=== PATIENT | male | born 1975 | race African-American/Black ===

== ENCOUNTER 2020-05-13 17:44 | Emergency (ER) | payer SELFPAY ==
[2020-05-13 18:09] VITALS: TEMP 98.5; BMI 34.0
[2020-05-13] MEDS ORDERED: amLODIPine BESYLATE 10 MG TABLET (FP) PO ONE ×2 (18:20)
[2020-05-13] MEDS ORDERED: amLODIPine BESYLATE 5 MG TABLET (FP) ONE (18:22)
--- NOTE | 2020-05-13 19:42 | PDOC ---
History of Present Illness - General Chief Complaint: Foreign Body (FB) Stated Complaint: PENIS COMPLAINT Time Seen by Provider: 05/13/20 18:00 - History of Present Illness Initial Comments: 05/13/20 19:40 44-year-old male with a past medical history of hypertension noncompliant with his medication presents for right sided testicular pain x2 days no dysuria or discharge no systemic symptoms Past History - Medical History Allergies/Adverse Reactions: Allergies Allergy/AdvReac Type Severity Reaction Status Date / Time No Known Allergies Allergy Unverified 05/13/20 18:02 COPD: No HTN: Yes - Psycho-Social/Smoking History Smoking History: Current every day smoker Have you smoked in the past 12 months: Yes Number of Cigarettes Smoked Daily: 3 Information on smoking cessation initiated: No - Substance Abuse Hx (Audit-C & DAST Scrn) How often the patient has a drink containing alcohol: Monthly or less Number of drinks the patient has on a typical day: 1 or 2 How often the patient has six or more drinks on one occasion: Never Score: In Men: 4 or > Positive; In Women: 3 or > Positive: 1 Screen Result (Pos requires Nsg. Audit-10AR): Negative In the last yr the pt used illegal drug/Rx for NonMed reason: No Score: Yes response is considered Positive: 0 Screen Result (Positive result requires Nsg. DAST-10): Negative Review of Systems - Review of Systems Constitutional: No: Fever : Yes: Pain, Testicular Mass. No: Burning, Dysuria, Discharge, Frequency, Flank Pain, Hematuria, Incontinence, Urgency *Physical Exam - Vital Signs Last Vital Signs Temp Pulse Resp BP Pulse Ox 98.5 F 18 L 17 175/106 H 100 05/13/20 17:59 05/13/20 17:59 05/13/20 17:59 05/13/20 17:59 05/13/20 17:59 - Physical Exam 05/13/20 19:40 There is a tender firm nodule at the right epididymis vas deferens area normal surrounding skin color and temperature of the scrotum external genitalia otherwise normal ED Treatment Course - RADIOLOGY Radiology Studies Ordered: Category Date Time Status SCROTUM AND CONTENTS US [US] Stat Ultrasound 05/13/20 18:21 Completed - Medications Given in the ED: ED Medications Discontinued Medications Generic Name Dose Route Start Last Admin Trade Name Freq PRN Reason Stop Dose Admin Amlodipine Besylate 10 mg 05/13/20 18:20 05/13/20 18:26 Norvasc - PO 05/13/20 18:21 10 mg ONCE ONE Administration Medical Decision Making - Medical Decision Making 05/13/20 19:41 Ultrasound results discussed with patient. Patient to follow-up with urology. Tylenol Motrin as directed for pain. Return to the emergency room for further issues. I have reviewed the pathophysiology with the patient. They are in agreement with the treatment plan all questions were answered to their satisfaction. Understanding for follow-up without fail was also conveyed to the patient. Again they are in agreement. Discharge - Discharge Information Problems reviewed: Yes Clinical Impression/Diagnosis: Testicular pain Condition: Stable Disposition: HOME - Admission No - Follow up/Referral Referrals: Speedy Sarah MD [Staff Physician] - - Patient Discharge Instructions Additional Instructions: Tylenol Motrin as directed for pain and return to the emergency room should you have further issues. Without fail follow-up with urology in 1 to 2 days for further evaluation and treatment options. - Post Discharge Activity
[2020-05-13 20:11] VITALS: BP 162/96; PULSE 89
== END 2020-05-13 20:20 | disposition home or self-care (01) ==
LOC: JERFT 17:44
CPT/HCPCS: 76870-TC; 99284-25

== ENCOUNTER 2020-07-01 15:28 | Inpatient (IN) | payer OTHER ==
[2020-07-01] MEDS ORDERED: ASPIRIN 81 MG CHEWABLE TABLETS PO ONE (15:52)
[2020-07-01] MEDS ORDERED: ASPIRIN 81 MG CHEWABLE TABLETS ONE ×2 (16:12→16:14)
[2020-07-01] MEDS ORDERED: ATORVASTATIN CA 80 MG TABLET (FP) PO ONE (16:29)
[2020-07-01 16:39] LABS: BASO % 1.3 % (0-2.0); EOS % 2.1 % (0-4.5); HEMATOCRIT 35.2 % (35.4-49); MCHC 33.9 g/dl (32.0-35.9); MEAN CELL VOLUME 82.7 fl (80-96); MEAN PLT VOLUME 7.4 fl (7.5-11.1); MONO % 8.2 % (3.8-10.2); NEUT % 49.4 % (42.8-82.8); PLATELET COUNT 262 K/MM3 (134-434); RBC 4.26 M/mm3 (4.00-5.60); RDW 13.8 % (11.9-15.9); WHITE BLOOD COUNT 5.7 K/mm3 (4.0-10.0)
[2020-07-01 16:52] LABS: INR 0.98 (0.83-1.09); PROTHROMBIN TIME (PATIENT) 11.9 SEC (9.7-13.0)
[2020-07-01 16:55] LABS: ACTIVATED PTT 31.5 SECONDS (25.2-36.5); CHLORIDE 109 mmol/L (98-107); POTASSIUM 3.5 mmol/L (3.5-5.1); SODIUM 148 mmol/L (136-145)
[2020-07-01 16:57] LABS: CALCIUM 8.8 mg/dL (8.5-10.1)
[2020-07-01 16:58] LABS: ALBUMIN 3.7 g/dl (3.4-5.0); ANION GAP 7 MMOL/L (8-16); BLOOD UREA NITROGEN 16.9 mg/dL (7-18); CO2 32 mmol/L (21-32); GLUCOSE,RANDOM 100 mg/dL (74-106)
[2020-07-01] MEDS ORDERED: ATORVASTATIN CA 80 MG TABLET (FP) ONE (16:59)
[2020-07-01 17:01] LABS: CHOLESTEROL 217 mg/dL (50-200); CREATININE 1.7 mg/dL (0.55-1.3); SGOT/AST 34 U/L (15-37); SGPT/ALT 38 U/L (13-61); TRIGLYCERIDES 177 mg/dL (0-150)
[2020-07-01 17:02] LABS: BILIRUBIN,TOTAL 0.5 mg/dL (0.2-1); LDL CHOLESTEROL (ONLY SJRH) 139 mg/dL (5-100); TOT PROT 8.1 g/dl (6.4-8.2)
[2020-07-01 17:03] LABS: ALK PHOS 58 U/L (45-117); HDL CHOLESTEROL 51 mg/dL (40-60)
[2020-07-01] MEDS ORDERED: SODIUM CHLORIDE 1,000 ML IV SCH (23:15)
[2020-07-01 23:28] VITALS: BMI 31.7
[2020-07-01 23:53] LABS: URINE APPEARANCE CLEAR; URINE BILIRUBIN NEGATIVE (NEGATIVE); URINE COLOR YELLOW; URINE GLUCOSE (UA) NEGATIVE (NEGATIVE); URINE KETONE NEGATIVE (NEGATIVE); URINE LEUK ESTERASE NEGATIVE (NEGATIVE); URINE NITRITE NEGATIVE (NEGATIVE); URINE PROTEIN NEGATIVE (NEGATIVE)
[2020-07-02 00:03] LABS: COCAINE, UR NEGATIVE ng/ml (CUTOFF=300); URINE BARBITURATES NEGATIVE ng/ml (CUTOFF=200)
[2020-07-02 00:04] LABS: OPIATES, URI NEGATIVE ng/ml (CUTOFF=300); PHENCYCLIDINE,URINE NEGATIVE ng/ml (CUTOFF=25)
[2020-07-02 00:36] LABS: METHADONE, UR NEGATIVE ng/ml (CUTOFF=300); URINE AMPHETAMINES NEGATIVE ng/ml (CUTOFF=500); URINE BENZODIAZEPINES NEGATIVE ng/ml (CUTOFF=200)
[2020-07-02] MEDS ORDERED: MORPHINE SULFATE 2 MG/ML VIAL IVPUSH ONE (02:13)
[2020-07-02] MEDS ORDERED: NITROGLYCERIN SUBLINGUAL 1/150 0.4 MG TAB SL ONE (02:33)
[2020-07-02] MEDS ORDERED: ACETAMINOPHEN 325 MG TABLET (FP) PO ONE ×2 (02:34→02:35)
[2020-07-02 07:00] LABS: BASO % 0.9 % (0-2.0); EOS % 2.2 % (0-4.5); HEMATOCRIT 33.5 % (35.4-49); HEMOGLOBIN 11.3 GM/dL (11.7-16.9); LYMPH % 46.6 % (8-40); MCH 27.4 pg (25.7-33.7); MCHC 33.6 g/dl (32.0-35.9); MEAN CELL VOLUME 81.5 fl (80-96); MEAN PLT VOLUME 7.6 fl (7.5-11.1); MONO % 7.3 % (3.8-10.2); PLATELET COUNT 261 K/MM3 (134-434); RBC 4.12 M/mm3 (4.00-5.60); RDW 13.7 % (11.9-15.9); WHITE BLOOD COUNT 6.1 K/mm3 (4.0-10.0)
[2020-07-02 07:04] LABS: INR 1.09 (0.83-1.09); PROTHROMBIN TIME (PATIENT) 13.2 SEC (9.7-13.0)
[2020-07-02 07:05] LABS: ACTIVATED PTT 31.2 SECONDS (25.2-36.5)
[2020-07-02 07:46] LABS: ALBUMIN 3.6 g/dl (3.4-5.0); CALCIUM 8.6 mg/dL (8.5-10.1)
[2020-07-02 07:47] LABS: BLOOD UREA NITROGEN 16.6 mg/dL (7-18); MAGNESIUM 2.2 mg/dL (1.8-2.4)
[2020-07-02 07:49] LABS: CREATININE 1.6 mg/dL (0.55-1.3); PHOSPHOROUS 3.3 mg/dL (2.5-4.9)
[2020-07-02 07:51] LABS: TOT PROT 7.5 g/dl (6.4-8.2)
[2020-07-02] MEDS: ASPIRIN 81 MG CHEWABLE TABLETS PO SCH (10:14)
[2020-07-02] MEDS ORDERED: POTASSIUM CHLORIDE TABS 20 MEQ TABLET.ER (FP) PO ONE ×2 (12:11→14:09)
[2020-07-02] MEDS ORDERED: POTASSIUM CHLORIDE ORAL LIQUID 20 MEQ/15 ML PO ONE (12:12)
[2020-07-02] MEDS: KCL 10 MEQ IVPB 10 MEQ/100 ML INFUS.BAG IVPB SCH ×2 (12:47→14:14)
[2020-07-02] MEDS: amLODIPine BESYLATE 10 MG TABLET (FP) PO SCH (12:48)
[2020-07-02] MEDS: LABETALOL HCL 100 MG TABLET (FP) PO SCH ×2 (19:01→22:22)
[2020-07-02] MEDS: ATORVASTATIN CA 80 MG TABLET (FP) PO SCH (22:21)
[2020-07-02] MEDS: HEPARIN NA (PORCINE) 5,000 UNITS/ML 1ML VIAL SQ SCH (22:21)
[2020-07-03] MEDS: HEPARIN NA (PORCINE) 5,000 UNITS/ML 1ML VIAL SQ SCH ×3 (05:24→21:09)
[2020-07-03 09:02] LABS: HEMATOCRIT 34.7 % (35.4-49); HEMOGLOBIN 11.5 GM/dL (11.7-16.9); MCHC 33.1 g/dl (32.0-35.9); MEAN CELL VOLUME 81.6 fl (80-96); MEAN PLT VOLUME 7.2 fl (7.5-11.1); PLATELET COUNT 265 K/MM3 (134-434); RBC 4.25 M/mm3 (4.00-5.60); RDW 13.9 % (11.9-15.9); WHITE BLOOD COUNT 6.2 K/mm3 (4.0-10.0)
[2020-07-03] MEDS: ASPIRIN 81 MG CHEWABLE TABLETS PO SCH (09:02)
[2020-07-03] MEDS: amLODIPine BESYLATE 10 MG TABLET (FP) PO SCH (09:02)
[2020-07-03] MEDS: LABETALOL HCL 100 MG TABLET (FP) PO SCH ×2 (09:02→14:12)
[2020-07-03 09:31] LABS: POTASSIUM 3.2 mmol/L (3.5-5.1)
[2020-07-03 09:36] LABS: BLOOD UREA NITROGEN 19.4 mg/dL (7-18); CALCIUM 8.9 mg/dL (8.5-10.1)
[2020-07-03 09:40] LABS: CREATININE 1.7 mg/dL (0.55-1.3)
[2020-07-03] MEDS ORDERED: POTASSIUM CHLORIDE ORAL LIQUID 20 MEQ/15 ML PO ONE (12:00)
[2020-07-03] MEDS ORDERED: ASPIRIN 81 MG CHEWABLE TABLETS PO STA (16:37)
[2020-07-03] MEDS: ATORVASTATIN CA 80 MG TABLET (FP) PO SCH (21:08)
[2020-07-04] MEDS: HEPARIN NA (PORCINE) 5,000 UNITS/ML 1ML VIAL SQ SCH ×3 (05:31→21:02)
[2020-07-04 06:39] LABS: HEMATOCRIT 34.4 % (35.4-49); HEMOGLOBIN 11.1 GM/dL (11.7-16.9); MCHC 32.3 g/dl (32.0-35.9); MEAN CELL VOLUME 83.6 fl (80-96); MEAN PLT VOLUME 7.3 fl (7.5-11.1); PLATELET COUNT 250 K/MM3 (134-434); RBC 4.11 M/mm3 (4.00-5.60); RDW 14.3 % (11.9-15.9); WHITE BLOOD COUNT 6.2 K/mm3 (4.0-10.0)
[2020-07-04 06:59] LABS: POTASSIUM 3.3 mmol/L (3.5-5.1)
[2020-07-04 07:02] LABS: BLOOD UREA NITROGEN 17.4 mg/dL (7-18); CALCIUM 9.1 mg/dL (8.5-10.1)
[2020-07-04 07:03] LABS: MAGNESIUM 2.3 mg/dL (1.8-2.4)
[2020-07-04 07:07] LABS: CREATININE 1.7 mg/dL (0.55-1.3)
[2020-07-04] MEDS ORDERED: POTASSIUM CHLORIDE ORAL LIQUID 20 MEQ/15 ML PO ONE (08:30)
[2020-07-04] MEDS: ASPIRIN 325 MG ENTERIC COATED TABLET (FP) PO SCH (09:06)
[2020-07-04 12:23] LABS: URINE APPEARANCE CLEAR; URINE BILIRUBIN NEGATIVE (NEGATIVE); URINE COLOR YELLOW; URINE GLUCOSE (UA) NEGATIVE (NEGATIVE); URINE KETONE TRACE (NEGATIVE); URINE LEUK ESTERASE NEGATIVE (NEGATIVE); URINE NITRITE NEGATIVE (NEGATIVE); URINE PROTEIN NEGATIVE (NEGATIVE)
[2020-07-04] MEDS ORDERED: ACETAMINOPHEN 325 MG TABLET (FP) PO ONE (20:18)
[2020-07-04] MEDS: ATORVASTATIN CA 80 MG TABLET (FP) PO SCH (21:02)
[2020-07-05] MEDS: LABETALOL HCL 100 MG TABLET (FP) PO SCH ×2 (05:44→13:29)
[2020-07-05] MEDS: HEPARIN NA (PORCINE) 5,000 UNITS/ML 1ML VIAL SQ SCH ×2 (05:44→13:29)
[2020-07-05 07:32] LABS: HEMATOCRIT 34.4 % (35.4-49); HEMOGLOBIN 11.2 GM/dL (11.7-16.9); MCH 27.1 pg (25.7-33.7); MCHC 32.5 g/dl (32.0-35.9); MEAN CELL VOLUME 83.3 fl (80-96); MEAN PLT VOLUME 8.2 fl (7.5-11.1); PLATELET COUNT 281 K/MM3 (134-434); RBC 4.13 M/mm3 (4.00-5.60); RDW 14.5 % (11.9-15.9); WHITE BLOOD COUNT 6.1 K/mm3 (4.0-10.0)
[2020-07-05 07:47] LABS: POTASSIUM 3.9 mmol/L (3.5-5.1)
[2020-07-05 07:58] LABS: CALCIUM 9.1 mg/dL (8.5-10.1)
[2020-07-05 07:59] LABS: BLOOD UREA NITROGEN 21.9 mg/dL (7-18)
[2020-07-05 08:02] LABS: CREATININE 1.6 mg/dL (0.55-1.3)
[2020-07-05] MEDS: amLODIPine BESYLATE 10 MG TABLET (FP) PO SCH (11:08)
[2020-07-05] MEDS: ASPIRIN 325 MG ENTERIC COATED TABLET (FP) PO SCH (11:08)
[2020-07-05 14:18] VITALS: BP 156/89; PULSE 73; TEMP 97.6
[2020-07-08 11:07] LABS: DRVVT - 46.4 sec (0.0-47.0); PROTEIN S FREE 147 % (57-157)
[2020-07-08 15:09] LABS: DRVVT - 36.8 sec (0.0-47.0)
[2020-07-09 10:07] LABS: RENIN ACTIVITY(PRA) 3.282 ng/mL/hr (0.167-5.380)
== END 2020-07-05 18:34 | disposition home health service (06) | DRG 65 ==
LOC: JER 15:28 → JERBED 18:06 → J4S 21:26
PROVIDERS: ADMIT Hospitalist; ATTEND Internal Medicine
DX: I63.89 Other cerebral infarction (principal); I16.1 Hypertensive emergency; G81.91 Hemiplegia, unspecified affecting right dominant side; N18.9 Chronic kidney disease, unspecified; I10 Essential (primary) hypertension; E87.6 Hypokalemia; R47.81 Slurred speech; R29.810 Facial weakness; I69.392 Facial weakness following cerebral infarction; R29.703 NIHSS score 3
CPT/HCPCS: 36415; 70450-TC; 70551-TC; 71045-TC-FY; 73030-TC-RT-FY; 76775-TC; 76856-TC; 80048; 80053; 80061; 80307; 81003; 81241; 82088; 82436; 82550; 82553; 82565; 83036; 83721; 83735; 84100; 84133; 84244; 84300; 84439; 84443; 84484; 85025; 85027; 85303; 85305; 85306; 85610; 85613; 85730; 85732; 86146; 86850; 86900; 86901; 93005; 93010; 93306-TC; 93880-TC; 97116-GP; 97161-GP; 99285-25; C9803; J1644; U0003

== ENCOUNTER 2021-02-28 19:23 | Emergency (ER) | payer SELFPAY ==
[2021-02-28 19:33] VITALS: BMI 33.3
[2021-02-28] MEDS ORDERED: ACETAMINOPHEN 325 MG TABLET (FP) PO ONE (20:04)
[2021-02-28] MEDS ORDERED: ACETAMINOPHEN 325 MG TABLET (FP) ONE (20:05)
[2021-02-28 23:17] VITALS: BP 146/97; PULSE 89; TEMP 98.3
== END 2021-02-28 23:23 | disposition home or self-care (01) ==
LOC: JER 19:23
DX: R05 Cough (principal); R09.89 Other specified symptoms and signs involving the circulatory and respiratory systems; M79.10 Myalgia, unspecified site; Z11.52 Encounter for screening for COVID-19
CPT/HCPCS: 71046-TC-FY; 87804; 99284-25; C9803; U0003; U0005

== ENCOUNTER 2021-06-13 08:48 | Inpatient (IN) | payer OTHER ==
[2021-06-13] MEDS ORDERED: SODIUM CHLORIDE 1,000 ML IV SCH (09:00)
[2021-06-13 09:14] VITALS: TEMP 98; BMI 32.1
[2021-06-13] MEDS ORDERED: amLODIPine BESYLATE 10 MG TABLET (FP) PO ONE (09:55)
[2021-06-13 10:02] VITALS: PULSE 94
[2021-06-13] MEDS ORDERED: amLODIPine BESYLATE 5 MG TABLET (FP) ONE (10:27)
[2021-06-13 10:40] LABS: BASO % 1.1 % (0-2.0); EOS % 2.3 % (0-4.5); HEMATOCRIT 34.3 % (35.4-49); HEMOGLOBIN 11.9 GM/dL (11.7-16.9); LYMPH % 32.6 % (8-40); MCH 28.4 pg (25.7-33.7); MCHC 34.6 g/dl (32.0-35.9); MEAN PLT VOLUME 7.5 fl (7.5-11.1); MONO % 7.3 % (3.8-10.2); NEUT % 56.7 % (42.8-82.8); PLATELET COUNT 268 10^3/uL (134-434); RBC 4.18 M/mm3 (4.00-5.60); RDW 14.6 % (11.9-15.9); WHITE BLOOD COUNT 7.4 K/mm3 (4.0-10.0)
[2021-06-13 10:42] LABS: URINE APPEARANCE CLEAR; URINE BILIRUBIN NEGATIVE (NEGATIVE); URINE COLOR YELLOW; URINE GLUCOSE (UA) TRACE (NEGATIVE); URINE KETONE NEGATIVE (NEGATIVE); URINE LEUK ESTERASE NEGATIVE (NEGATIVE); URINE NITRITE NEGATIVE (NEGATIVE); URINE PROTEIN NEGATIVE (NEGATIVE)
[2021-06-13 10:51] LABS: INR 0.86 (0.83-1.09); PROTHROMBIN TIME (PATIENT) 10.1 SEC (9.7-13.0)
[2021-06-13 11:00] LABS: CHLORIDE 112 mmol/L (98-107); SODIUM 143 mmol/L (136-145)
[2021-06-13 11:04] LABS: CALCIUM 8.5 mg/dL (8.5-10.1)
[2021-06-13 11:05] LABS: ALBUMIN 3.5 g/dl (3.4-5.0); ANION GAP 3 MMOL/L (8-16); BLOOD UREA NITROGEN 14.5 mg/dL (7-18); CO2 29 mmol/L (21-32); GLUCOSE,RANDOM 102 mg/dL (74-106)
[2021-06-13 11:06] LABS: SGOT/AST 20 U/L (15-37); SGPT/ALT 28 U/L (13-61)
[2021-06-13 11:07] LABS: CHOLESTEROL 205 mg/dL (50-200)
[2021-06-13 11:08] LABS: BILIRUBIN,TOTAL 0.2 mg/dL (0.2-1); CREATININE 1.2 mg/dL (0.55-1.3); LDL CHOLESTEROL (ONLY SJRH) 119 mg/dL (5-100); TOT PROT 7.4 g/dl (6.4-8.2); TRIGLYCERIDES 129 mg/dL (0-150)
[2021-06-13 11:09] LABS: ALK PHOS 113 U/L (45-117); HDL CHOLESTEROL 52 mg/dL (40-60)
[2021-06-13] MEDS ORDERED: ATORVASTATIN CA 80 MG TABLET (FP) PO ONE (11:20)
[2021-06-13] MEDS ORDERED: ASPIRIN 81 MG CHEWABLE TABLETS PO ONE (11:21)
[2021-06-13] MEDS ORDERED: ASPIRIN 81 MG CHEWABLE TABLETS ONE (11:42)
[2021-06-13] MEDS ORDERED: ATORVASTATIN CA 80 MG TABLET (FP) ONE (11:42)
[2021-06-13 13:13] VITALS: BP 165/102
[2021-06-14] MEDS ORDERED: PANTOPRAZOLE 40 MG TABLET PO SCH (10:00)
[2021-06-14] MEDS ORDERED: ENOXAPARIN NA (PORCINE) 40 MG/0.4 ML DISP.SYRIN SQ SCH (10:00)
[2021-06-14] MEDS ORDERED: ASPIRIN COATED 81 MG TABLET.EC PO SCH (10:00)
[2021-06-14] MEDS ORDERED: ATORVASTATIN CA 80 MG TABLET (FP) PO SCH (22:00)
== END 2021-06-13 14:30 | disposition left against medical advice (07) | DRG 93 ==
LOC: JER 08:48 → JERBED 09:25
PROVIDERS: ADMIT Internal Medicine; ATTEND Internal Medicine
DX: R20.0 Anesthesia of skin (principal); I10 Essential (primary) hypertension; E78.5 Hyperlipidemia, unspecified; F17.210 Nicotine dependence, cigarettes, uncomplicated; Z53.29 Procedure and treatment not carried out because of patient's decision for other reasons
CPT/HCPCS: 36415; 70450-TC; 70551-TC; 71045-TC-FY; 80053; 80061; 81003; 82550; 82553; 83036; 84484; 85025; 85610; 85730; 86850; 86900; 86901; 93005; 93010; 93880-TC; 99285-25; C9803; U0003; U0005